=== PATIENT | male | born 1955 | race Hispanic/Latino ===

== ENCOUNTER 2019-10-08 12:13 | Inpatient (IN) | payer BC ==
[~2019-10-08] VITALS: Ht 182.9 cm; Wt 100.2 kg
[2019-10-08] MEDS ORDERED: ONDANSETRON HCL 4 MG/2 ML VIAL ONE (12:39)
[2019-10-08] MEDS ORDERED: ROCURONIUM BROMIDE 10MG/1ML 5ML VL IV ONE (12:41)
[2019-10-08 13:08] LABS: BASOPHILS % (AUTO) 0.2 % (0.0-5.0); EOSINOPHILS % (AUTO) 0.1 % (0.0-8.0); HEMATOCRIT 28.9 % (42-54); LYMPHOCYTES % (AUTO) 6.1 % (21.0-51.0); MEAN CORPUSCULAR HGB CONC 36.3 g/dL (32.0-36.0); MEAN CORPUSCULAR VOLUME 88.1 fL (79-99); MONOCYTES % (AUTO) 10.7 % (3.0-13.0); NEUTROPHILS % (AUTO) 82.4 % (40.0-77.0); PLATELET COUNT (AUTO) 149 K/uL (130-400); RED BLOOD CELL COUNT(AUTO) 3.28 MIL/uL (4.50-6.20); RED CELL DISTRIBUTION WIDTH 12.8 % (11.0-15.5); WHITE BLOOD COUNT (AUTO) 10.3 K/uL (4.8-10.8)
[2019-10-08 13:35] LABS: BILIRUBIN,TOTAL 1.4 mg/dL (0.2-1.0); POTASSIUM 3.5 mmol/L (3.5-5.1); TOTAL PROTEIN, SERUM 7.4 g/dL (6.0-8.3)
[2019-10-08 13:36] LABS: CREATININE 14.5 mg/dL (0.5-1.5)
[2019-10-08] MEDS ORDERED: SODIUM CHLORIDE 0.9% 1000ML 1,000 ML IV ONE ×2 (14:19→16:45)
[2019-10-08] MEDS ORDERED: EPINEPHRINE 0.1 MG/ML 10 ML SYG IVP ONE (14:27)
[2019-10-08 14:32] LABS: BASE EXCESS,VENOUS BLOOD GAS -13.4 (-2.0-3.0); HCO3,VENOUS BLOOD GAS 13.6 (21.0-28.0); PCO2,VENOUS BLOOD GAS 36 (35-48); PH,VENOUS BLOOD GAS 7.202 (7.350-7.450)
[2019-10-08] MEDS: SODIUM CHLORIDE 0.9% 1000ML 1,000 ML IV SCH (15:32)
[2019-10-08] MEDS ORDERED: LACTULOSE 20 GM/30 ML UDCUP PO PRN (15:45)
[2019-10-08] MEDS ORDERED: ACETAMINOPHEN 325 MG TAB PO PRN (15:45)
[2019-10-08] MEDS ORDERED: MAG HYDROX/AL HYDROX/SIMETH ES 30 ML SUSP UDCUP PO PRN (15:45)
[2019-10-08] MEDS ORDERED: GUAIFENESIN-DM 200/20 MG 10 ML PO PRN (15:45)
[2019-10-08] MEDS ORDERED: HYDRALAZINE HCL 20 MG/ML VIAL IV PRN (15:45)
[2019-10-08] MEDS ORDERED: NITROGLYCERIN 0.4 MG SL TAB SL PRN (15:45)
[2019-10-08] MEDS ORDERED: ONDANSETRON HCL 4 MG/2 ML VIAL IV PRN (15:45)
[2019-10-08 16:52] LABS: ABG BASE EXCESS -14.1 mmol/L (-2.0-3.0); ABG HCO3 12.2 mmol/L (21.0-28.0); ABG OXYGEN SATURATION 97.2 % (95.0-99.0); ABG PCO2 30 mmHg (35-48)
[2019-10-08 16:59] LABS: HEMOGLOBIN A1C 6.6 % (4.0-6.0)
[2019-10-08 17:22] LABS: ALBUMIN 3.7 g/dL (3.5-5.0); BILIRUBIN,TOTAL 0.7 mg/dL (0.2-1.0); POTASSIUM 3.5 mmol/L (3.5-5.1); TOTAL PROTEIN, SERUM 6.9 g/dL (6.0-8.3)
[2019-10-08 17:24] LABS: CREATININE 14.2 mg/dL (0.5-1.5)
[2019-10-08] MEDS ORDERED: IPRATROPIUM/ALBUTEROL SULFATE 3 ML SOLUTION IH SCH (18:00)
[2019-10-08] MEDS: HEPARIN SODIUM 5000UNIT/ML 1ML VIAL SQ SCH (21:00)
[2019-10-08] MEDS ORDERED: HEPARIN SODIUM 5000UNIT/ML 1ML VIAL ONE (21:24)
[2019-10-08 22:14] VITALS: BP 140/85
[2019-10-08] MEDS ORDERED: TEMAZEPAM 7.5 MG CAPSULE PO ONE ×2 (22:30→22:41)
[2019-10-08] MEDS ORDERED: ROSU20TA31 PO (22:53)
[2019-10-08] MEDS ORDERED: AMLO-258 PO (22:53)
[2019-10-08] MEDS ORDERED: METO25TA6 PO (22:53)
[2019-10-08] MEDS ORDERED: AEC81 PO (22:53)
[2019-10-09 04:25] VITALS: BP 121/89
[2019-10-09 06:10] LABS: BASOPHILS % (AUTO) 0.1 % (0.0-5.0); EOSINOPHILS % (AUTO) 0.4 % (0.0-8.0); HEMATOCRIT 25.5 % (42-54); MEAN CORPUSCULAR HGB CONC 35.7 g/dL (32.0-36.0); MEAN CORPUSCULAR VOLUME 89.8 fL (79-99); MONOCYTES % (AUTO) 11.4 % (3.0-13.0); NEUTROPHILS % (AUTO) 78.6 % (40.0-77.0); PLATELET COUNT (AUTO) 142 K/uL (130-400); RED BLOOD CELL COUNT(AUTO) 2.84 MIL/uL (4.50-6.20); RED CELL DISTRIBUTION WIDTH 12.8 % (11.0-15.5); WHITE BLOOD COUNT (AUTO) 9.1 K/uL (4.8-10.8)
[2019-10-09 06:35] LABS: ALBUMIN 3.4 g/dL (3.5-5.0); BILIRUBIN,TOTAL 0.6 mg/dL (0.2-1.0); CRP QUANTITATIVE 12.2 mg/L (0.00-9.0); MAGNESIUM 2.6 mg/dL (1.80-2.40); POTASSIUM 3.3 mmol/L (3.5-5.1); THYROID STIMULATING HORMONE 38.4 uIU/mL (0.36-3.74); TOTAL PROTEIN, SERUM 6.4 g/dL (6.0-8.3)
[2019-10-09 06:38] LABS: B-TYPE NATRIURETIC PEPTIDE 87 pg/mL (0-100); CREATININE 14.8 mg/dL (0.5-1.5)
[2019-10-09 07:30] VITALS: BP 122/71
[2019-10-09] MEDS: HEPARIN SODIUM 5000UNIT/ML 1ML VIAL SQ SCH ×2 (10:24→21:53)
[2019-10-09] MEDS: POTASSIUM CHLORIDE 20 MEQ ERTAB PO SCH (10:24)
[2019-10-09] MEDS: SODIUM CHLORIDE 0.9% 1000ML 1,000 ML IV SCH ×2 (10:24→18:37)
[2019-10-09] MEDS: LEVOTHYROXINE 100 MCG VIAL IV SCH (10:27)
[2019-10-09 11:00] VITALS: BP 126/77
--- NOTE | 2019-10-09 11:30 | NUR ---
PATIENT REFUSED ENEMA. INFORMED DR. MERRILL.
[2019-10-09] MEDS: SEVELAMER HCL 800 MG TABLET PO SCH ×2 (11:40→16:24)
--- NOTE | 2019-10-09 11:40 | NUR ---
ABOUT TO PLACE PARADA CATHETER WHEN I NOTICED THAT PATIENT IS HAVING BLOODY DISCHARGE FROM [facility]. I INFORMED DR. MERRILL AND PLACED PARADA CATHETER WITHOUT COMPLICATIONS.
[2019-10-09 12:21] LABS: POTASSIUM 3.2 mmol/L (3.5-5.1)
[2019-10-09 13:00] LABS: CREATININE 14.5 mg/dL (0.5-1.5)
--- NOTE | 2019-10-09 13:47 | NUR ---
CM NOTE/IA MEET WITH PATIENT IN ROOM. PER PATIENT, IS SEMI INDEPENDENT WITH ADLS, LIVES WITH SPOUSE, NO HOME HEALTH OR PROVIDER SERVICES, HAS ROLLATOR WALKER IN USE AT TIMES, AND FEELS SAFE TO RETURN HOME ONCE DISCHARGED. Addendum: 10/09/19 at 1348 by JARED KNOX RN CM Amended: Links added.
[2019-10-09 16:00] VITALS: BP 134/75
[2019-10-09 19:40] LABS: POTASSIUM 3.1 mmol/L (3.5-5.1)
[2019-10-09 19:46] LABS: CREATININE 14.4 mg/dL (0.5-1.5)
[2019-10-09 20:00] VITALS: BP 134/75
[2019-10-09] MEDS: SODIUM BICARBONATE 650 MG TAB PO SCH (20:38)
[2019-10-09] MEDS ORDERED: TEMAZEPAM 7.5 MG CAPSULE PO ONE ×2 (22:45→23:31)
[2019-10-10] VITALS (7 sets, daily range): BP systolic 131–139; BP diastolic 71–83
[2019-10-10 00:08] LABS: APPEARANCE,URINE Turbid (CLEAR); BILIRUBIN,URINE Negative (NEGATIVE); COLOR,URINE Dark Yellow (YELLOW); GLUCOSE, URINE (UA) Negative (NEGATIVE); KETONES,URINE Negative (NEGATIVE); LEUKOCYTE ESTERASE ,URINE Small (NEGATIVE); NITRATE,URINE Negative (NEGATIVE); OCCULT BLOOD,URINE Moderate (NEGATIVE); PROTEIN,URINE 300 mg/dL (NEGATIVE)
[2019-10-10 00:19] LABS: CREATININE,URINE RANDOM 162 mg/dL (30-135); SODIUM,URINE RANDOM 31 mmol/l (40-220)
[2019-10-10 00:22] LABS: BACTERIA,URINE Few /HPF (None Seen); WBC,URINE 0-1 /HPF (0-1)
[2019-10-10 00:23] LABS: AMORPHOUS SEDIMENT,UR Moderate /LPF (None Seen)
[2019-10-10] MEDS: SODIUM CHLORIDE 0.9% 1000ML 1,000 ML IV SCH ×3 (03:00→16:56)
[2019-10-10 04:28] LABS: BASOPHILS % (AUTO) 0.1 % (0.0-5.0); EOSINOPHILS % (AUTO) 0.1 % (0.0-8.0); LYMPHOCYTES % (AUTO) 6.1 % (21.0-51.0); MEAN CORPUSCULAR HEMOGLOBIN 32.1 pg (27.0-33.0); MEAN CORPUSCULAR HGB CONC 36.2 g/dL (32.0-36.0); MEAN CORPUSCULAR VOLUME 88.7 fL (79-99); NEUTROPHILS % (AUTO) 81.1 % (40.0-77.0); PLATELET COUNT (AUTO) 126 K/uL (130-400); RED BLOOD CELL COUNT(AUTO) 2.93 MIL/uL (4.50-6.20); RED CELL DISTRIBUTION WIDTH 13.1 % (11.0-15.5); WHITE BLOOD COUNT (AUTO) 10.4 K/uL (4.8-10.8)
[2019-10-10 05:19] LABS: % IRON SATURATION 66.8 % (30-44)
[2019-10-10 05:23] LABS: ALBUMIN 3.2 g/dL (3.5-5.0); BILIRUBIN,TOTAL 0.6 mg/dL (0.2-1.0); PHOSPHORUS 7.7 mg/dL (2.5-4.9); POTASSIUM 3.1 mmol/L (3.5-5.1); TOTAL PROTEIN, SERUM 6.1 g/dL (6.0-8.3)
[2019-10-10 05:28] LABS: CREATININE 14.6 mg/dL (0.5-1.5)
[2019-10-10] MEDS: LEVOTHYROXINE 100 MCG VIAL IV SCH (06:30)
--- NOTE | 2019-10-10 08:00 | NUR ---
DR. SANDOVAL IS IN TO SEE PATIENT. PER MD, WILL CONTINUE IVF AT THIS TIME. WILL REEVALUATE TOMORROW FOR THE NEED TO START HEMODIALYSIS.
[2019-10-10] MEDS ORDERED: EPOETIN ALFA 10,000 UNIT/ML VIAL SQ SCH (08:30)
[2019-10-10] MEDS ORDERED: POTASSIUM CHLORIDE 20 MEQ ERTAB PO SCH (08:30)
[2019-10-10] MEDS: SEVELAMER HCL 800 MG TABLET PO SCH ×3 (09:07→16:55)
[2019-10-10] MEDS: SODIUM BICARBONATE 650 MG TAB PO SCH ×2 (09:07→20:19)
[2019-10-10] MEDS: HEPARIN SODIUM 5000UNIT/ML 1ML VIAL SQ SCH ×2 (09:08→20:21)
[2019-10-10] MEDS: POTASSIUM CHLORIDE 20 MEQ ERTAB PO SCH (09:08)
[2019-10-10] MEDS ORDERED: LACTULOSE 20 GM/30 ML UDCUP PO SCH (11:00)
--- NOTE | 2019-10-10 15:00 | NUR ---
DR. BANKS IS MAKING HIS ROUNDS. ORDERED TO CHECK CORTISOL LEVEL IN AM.
[2019-10-11 03:18] VITALS: BP 136/75
[2019-10-11 04:25] LABS: BASOPHILS % (AUTO) 0.2 % (0.0-5.0); EOSINOPHILS % (AUTO) 0.3 % (0.0-8.0); HEMATOCRIT 24.7 % (42-54); LYMPHOCYTES % (AUTO) 5.2 % (21.0-51.0); MEAN CORPUSCULAR HEMOGLOBIN 31.5 pg (27.0-33.0); MEAN CORPUSCULAR HGB CONC 35.6 g/dL (32.0-36.0); MEAN CORPUSCULAR VOLUME 88.5 fL (79-99); MONOCYTES % (AUTO) 10.4 % (3.0-13.0); NEUTROPHILS % (AUTO) 83.2 % (40.0-77.0); PLATELET COUNT (AUTO) 111 K/uL (130-400); RED BLOOD CELL COUNT(AUTO) 2.79 MIL/uL (4.50-6.20); RED CELL DISTRIBUTION WIDTH 13.2 % (11.0-15.5); WHITE BLOOD COUNT (AUTO) 10.7 K/uL (4.8-10.8)
[2019-10-11 05:25] LABS: ALBUMIN 2.9 g/dL (3.5-5.0); BILIRUBIN,TOTAL 0.5 mg/dL (0.2-1.0); POTASSIUM 3.1 mmol/L (3.5-5.1); TOTAL PROTEIN, SERUM 5.8 g/dL (6.0-8.3)
[2019-10-11] MEDS: LEVOTHYROXINE 50 MCG TABLET PO SCH (06:05)
[2019-10-11] MEDS: SODIUM CHLORIDE 0.9% 1000ML 1,000 ML IV SCH ×3 (06:05→23:49)
[2019-10-11 08:00] VITALS: BP 128/78
[2019-10-11] MEDS: SODIUM BICARBONATE 650 MG TAB PO SCH ×2 (08:26→19:55)
[2019-10-11] MEDS: SEVELAMER HCL 800 MG TABLET PO SCH ×3 (08:26→16:52)
[2019-10-11] MEDS: HEPARIN SODIUM 5000UNIT/ML 1ML VIAL SQ SCH ×2 (08:28→20:15)
[2019-10-11] MEDS: ACETAMINOPHEN 325 MG TAB PO PRN (08:33)
[2019-10-11 12:00] VITALS: BP 134/77
[2019-10-11 16:00] VITALS: BP 138/77
[2019-10-11 19:07] VITALS: BP_SYST 147; BP_DIAS 45; BP_DIAS 67
[2019-10-11] MEDS: TEMAZEPAM 7.5 MG CAPSULE PO PRN (19:55)
[2019-10-11 23:44] VITALS: BP 127/89
[2019-10-12] MEDS: SODIUM CHLORIDE 0.9% 1000ML 1,000 ML IV SCH ×3 (02:37→20:05)
[2019-10-12 05:23] VITALS: BP 140/73
[2019-10-12] MEDS: LEVOTHYROXINE 50 MCG TABLET PO SCH (05:23)
[2019-10-12 05:40] LABS: HEMATOCRIT 25.8 % (42-54); MEAN CORPUSCULAR HEMOGLOBIN 32.2 pg (27.0-33.0); MEAN CORPUSCULAR VOLUME 89.3 fL (79-99); PLATELET COUNT (AUTO) 116 K/uL (130-400); RED BLOOD CELL COUNT(AUTO) 2.89 MIL/uL (4.50-6.20); RED CELL DISTRIBUTION WIDTH 13.3 % (11.0-15.5); WHITE BLOOD COUNT (AUTO) 9.7 K/uL (4.8-10.8)
[2019-10-12 05:47] LABS: BAND NEUTROPHILS % (MANUAL) 9 % (0-2); LYMPHOCYTES % (MANUAL) 11 % (22-44); MAN.DIFF COMMENT-IMPRESSION MANUAL DIFFERENTIAL; MONOCYTES % (MANUAL) 16 % (2-9); PLATELET MORPHOLOGY COMMENT ADEQUATE; SEGMENTED NEUTROPHILS % 64 % (40-70)
[2019-10-12 06:09] LABS: PHOSPHORUS 7.7 mg/dL (2.5-4.9); POTASSIUM 3.4 mmol/L (3.5-5.1)
[2019-10-12 06:12] LABS: CREATININE 13.9 mg/dL (0.5-1.5)
[2019-10-12] MEDS: DiphenhydrAMINE HCL 50 MG/ML VIAL IV PRN (06:18)
[2019-10-12] MEDS: ACETAMINOPHEN 325 MG TAB PO PRN (06:38)
[2019-10-12 07:00] VITALS: BP 151/81
[2019-10-12] MEDS: SODIUM BICARBONATE 650 MG TAB PO SCH ×2 (09:14→20:00)
[2019-10-12] MEDS: SEVELAMER HCL 800 MG TABLET PO SCH ×3 (09:14→16:31)
[2019-10-12] MEDS: HEPARIN SODIUM 5000UNIT/ML 1ML VIAL SQ SCH ×2 (09:31→20:03)
[2019-10-12 11:00] VITALS: BP 125/74
[2019-10-12 16:00] VITALS: BP 152/83
[2019-10-12 19:24] VITALS: BP 134/86
--- NOTE | 2019-10-12 21:00 | NUR ---
TELEPHONE CONSENT OBTAINED FOR PERMACATH PLACEMENT. CONSENT TO PROCEDURE. ART RN WITNESSED. PT IS AAO3. WANTED TO ALLOW TO CONSENT TO PROCEDURE SINCE HE IS WEAK AND HAS DIFFICULTY WITH WRITING PROPERLY DUE TO WEAKNESS.
[2019-10-13] VITALS (14 sets, daily range): BP systolic 132–164; BP diastolic 66–92
[2019-10-13] MEDS: SODIUM CHLORIDE 0.9% 1000ML 1,000 ML IV SCH ×2 (02:37→06:44)
[2019-10-13] MEDS: LEVOTHYROXINE 50 MCG TABLET PO SCH (05:36)
[2019-10-13 06:10] LABS: BASOPHILS % (AUTO) 0.2 % (0.0-5.0); EOSINOPHILS % (AUTO) 0.2 % (0.0-8.0); HEMATOCRIT 25.2 % (42-54); LYMPHOCYTES % (AUTO) 3.9 % (21.0-51.0); MEAN CORPUSCULAR HEMOGLOBIN 32.3 pg (27.0-33.0); MEAN CORPUSCULAR HGB CONC 35.7 g/dL (32.0-36.0); MEAN CORPUSCULAR VOLUME 90.3 fL (79-99); MONOCYTES % (AUTO) 13.6 % (3.0-13.0); NUCLEATED RED BLOOD CELLS 0.2 % (0.0-0.19); PLATELET COUNT (AUTO) 103 K/uL (130-400); RED BLOOD CELL COUNT(AUTO) 2.79 MIL/uL (4.50-6.20); RED CELL DISTRIBUTION WIDTH 13.6 % (11.0-15.5); WHITE BLOOD COUNT (AUTO) 8.5 K/uL (4.8-10.8)
[2019-10-13 06:22] LABS: INR 1.12 (0.85-1.15); PARTIAL THROMBOPLASTIN TIME 65.4 SEC (26.3-35.5)
[2019-10-13 06:23] LABS: ALBUMIN 2.8 g/dL (3.5-5.0); BILIRUBIN,TOTAL 0.4 mg/dL (0.2-1.0); PHOSPHORUS 7.5 mg/dL (2.5-4.9); POTASSIUM 3.5 mmol/L (3.5-5.1); TOTAL PROTEIN, SERUM 5.6 g/dL (6.0-8.3)
[2019-10-13 06:49] LABS: CREATININE 13.7 mg/dL (0.5-1.5)
[2019-10-13] MEDS: SEVELAMER HCL 800 MG TABLET PO SCH ×3 (07:53→16:26)
[2019-10-13] MEDS ORDERED: LIDOCAINE HCL 1% MDV 50ML VIAL ONE (08:48)
[2019-10-13] MEDS: HEPARIN SODIUM 5000UNIT/ML 1ML VIAL SQ SCH ×2 (09:00→21:26)
[2019-10-13] MEDS ORDERED: MIDAZOLAM HCL 1 MG/ML 2ML VIAL ONE (09:16)
[2019-10-13] MEDS ORDERED: FENTANYL CITRATE PF 50 MCG/1 ML 2ML VIAL ONE (09:16)
[2019-10-13 11:59] LABS: HEMATOCRIT 24.2 % (42-54)
[2019-10-13] MEDS ORDERED: HEPARIN SODIUM 5000UNIT/ML 1ML VIAL IJ PRN ×2 (12:00)
[2019-10-13] MEDS ORDERED: NITROGLYCERIN 0.4 MG SL TAB SL PRN (12:00)
[2019-10-13] MEDS ORDERED: SODIUM CHLORIDE 0.9% 1000ML 1,000 ML IV PRN (12:00)
[2019-10-13] MEDS ORDERED: 0.9% SODIUM CHLORIDE 1000 ML IV BAG IV PRN (12:00)
[2019-10-13] MEDS ORDERED: ACETAMINOPHEN 325 MG TAB PO PRN (12:00)
[2019-10-13 12:14] LABS: HEMOGLOBIN A1C 6.1 % (4.0-6.0)
[2019-10-13 12:17] LABS: ALBUMIN 2.7 g/dL (3.5-5.0)
[2019-10-13 12:29] LABS: CREATININE 12.4 mg/dL (0.5-1.5)
[2019-10-13 12:34] LABS: % IRON SATURATION 96.4 % (30-44)
--- NOTE | 2019-10-13 21:00 | NUR ---
SPOKE TO PT'S . UPDATED HER ON PT'S STATUS.
[2019-10-13] MEDS: DiphenhydrAMINE HCL 50 MG/ML VIAL IV PRN (21:37)
--- NOTE | 2019-10-13 23:00 | NUR ---
PT HAD PERMACATH PLACED TODAY, THEN WAS DIALYZED. NOTED TO HAVE SATURATED DRESSING TO RIGHT UPPER CHEST. REDRESS WITH GAUZE. DIALYSIS NURSE INFORMED. PT STATES HE FEELS VERY EXHAUSTED. WAS INFORMED THAT AFTER FIRST DIALYSIS PT EXPERIENCE FATIGUE. REQUESTED MEDICATIONS TO HELP HIM RELAX AND SLEEP. BENADRYL GIVEN PRN.
[2019-10-14] VITALS: BP 152/87
[2019-10-14 04:00] VITALS: BP 152/85
--- NOTE | 2019-10-14 05:20 | NUR ---
CHANGED PERMACATH DRESSING DUE TO IT HAVING SOME BLEEDING. APPLIED EXTRA TAPE FOR PRESSURE.
--- NOTE | 2019-10-14 05:23 | NUR ---
DID NOT DO DAILY WEIGHT. PT HAS INCREASED WEAKNESS S/P FIRST DIALYSIS AND PERMACATH PLACEMENT. HE STATES HE DOES NOT FEEL WELL. HIS PERMACATH AREA IS BLEEDING AND PLTS ARE LOW. PCP AWARE TO RELAY MESSAGE TO WEIGHT DURING THE DAY WHEN GETS UP WITH PT.
[2019-10-14] MEDS: DIPHENHYDRAMINE HCL 25 MG CAPSULE PO PRN ×2 (05:53→17:14)
[2019-10-14] MEDS: LEVOTHYROXINE 50 MCG TABLET PO SCH (05:53)
[2019-10-14 05:58] LABS: BASOPHILS % (AUTO) 0.1 % (0.0-5.0); EOSINOPHILS % (AUTO) 0.2 % (0.0-8.0); HEMATOCRIT 22.5 % (42-54); LYMPHOCYTES % (AUTO) 4.6 % (21.0-51.0); MEAN CORPUSCULAR HEMOGLOBIN 31.4 pg (27.0-33.0); MEAN CORPUSCULAR HGB CONC 35.6 g/dL (32.0-36.0); MEAN CORPUSCULAR VOLUME 88.2 fL (79-99); MONOCYTES % (AUTO) 13.9 % (3.0-13.0); PLATELET COUNT (AUTO) 83 K/uL (130-400); RED BLOOD CELL COUNT(AUTO) 2.55 MIL/uL (4.50-6.20); RED CELL DISTRIBUTION WIDTH 13.7 % (11.0-15.5); WHITE BLOOD COUNT (AUTO) 8.2 K/uL (4.8-10.8)
[2019-10-14] MEDS: HEPARIN SODIUM 5000UNIT/ML 1ML VIAL SQ SCH ×2 (05:59→20:15)
[2019-10-14 06:13] LABS: ALBUMIN 2.6 g/dL (3.5-5.0); BILIRUBIN,TOTAL 0.4 mg/dL (0.2-1.0); TOTAL PROTEIN, SERUM 5.4 g/dL (6.0-8.3)
[2019-10-14 06:23] LABS: CREATININE 10.4 mg/dL (0.5-1.5)
[2019-10-14 07:36] VITALS: BP 148/80
[2019-10-14] MEDS: SEVELAMER HCL 800 MG TABLET PO SCH ×3 (08:21→16:52)
[2019-10-14 10:10] LABS: HEPATITIS Bs ANTIGEN SCREEN P Negative (Negative)
[2019-10-14 11:27] VITALS: BP 143/91
[2019-10-14 15:36] VITALS: BP 142/84
[2019-10-14 21:02] VITALS: BP 153/82
--- NOTE | 2019-10-14 22:00 | NUR ---
permacath dressing changed patients gown and permacath dressing soaked with blood. dressing change done. there was not any active oozing present during dressing change.
[2019-10-14] MEDS: TEMAZEPAM 7.5 MG CAPSULE PO PRN (23:03)
[2019-10-15 00:06] VITALS: BP 148/81
[2019-10-15 04:00] VITALS: BP 94/61
[2019-10-15 05:21] LABS: ALBUMIN 2.5 g/dL (3.5-5.0); BILIRUBIN,TOTAL 0.4 mg/dL (0.2-1.0); INR 1.08 (0.85-1.15); PARTIAL THROMBOPLASTIN TIME 37.1 SEC (26.3-35.5); PHOSPHORUS 4.4 mg/dL (2.5-4.9); POTASSIUM 3.6 mmol/L (3.5-5.1); PROTHROMBIN TIME 11.6 SEC (9.6-11.6); TOTAL PROTEIN, SERUM 5.2 g/dL (6.0-8.3)
[2019-10-15 05:29] LABS: CREATININE 8.1 mg/dL (0.5-1.5)
[2019-10-15 05:53] LABS: MEAN CORPUSCULAR HEMOGLOBIN 31.8 pg (27.0-33.0); MEAN CORPUSCULAR HGB CONC 35.1 g/dL (32.0-36.0); MEAN CORPUSCULAR VOLUME 90.6 fL (79-99); NUCLEATED RED BLOOD CELLS 0.3 % (0.0-0.19); PLATELET COUNT (AUTO) 66 K/uL (130-400); RED BLOOD CELL COUNT(AUTO) 1.92 MIL/uL (4.50-6.20); RED CELL DISTRIBUTION WIDTH 14.3 % (11.0-15.5); WHITE BLOOD COUNT (AUTO) 9.5 K/uL (4.8-10.8)
[2019-10-15 05:56] LABS: HEMATOCRIT 17.4 % (42-54)
--- NOTE | 2019-10-15 06:08 | NUR ---
critical h/h kaye henderson NP notified of h/h 6.06/04.5 orders received for type/screen and xfuse 1 unit of prbc to be given in hd today if he is not dialyzed today, then xfuse 1 unit of prbc anyway
[2019-10-15 06:19] LABS: BAND NEUTROPHILS % (MANUAL) 20 % (0-2); LYMPHOCYTES % (MANUAL) 11 % (22-44); MAN.DIFF COMMENT-IMPRESSION MANUAL DIFFERENTIAL; MONOCYTES % (MANUAL) 5 % (2-9); SEGMENTED NEUTROPHILS % 64 % (40-70)
[2019-10-15 06:20] LABS: PLATELET MORPHOLOGY COMMENT DECREASED
[2019-10-15] MEDS: LEVOTHYROXINE 50 MCG TABLET PO SCH (06:30)
--- NOTE | 2019-10-15 07:30 | NUR ---
ASSESSMENT ENCOUNTERED PT A&OX3, CALM COOPERATIVE AND DOES NOT APPEAR TO BE IN ANY DISTRESS NOR ANY NEURO DEFICITS PRESENT. PT DOES C/O RT UPPER ARM DISCOMFORT, TENDER TO TOUCH AND MOVEMENT. PERMACATH TO RSC, WITH NO ACTIVE BLEEDING BUT DID BLEED OVERNIGHT, MANUAL PRESSURE HELD BY SUPERVISOR DRYING AND WINDING RN, DRESSING WILL BE REMOVED AND RE-APPLIED DURING DIALYSIS TODAY. PT IS ABLE TO TOLERATE FOOD, FLUIDS AND MEDICATION WITH NO THROAT CLEARING OR COUGH. CALL LIGHT WITHIN REACH.
[2019-10-15] MEDS: SEVELAMER HCL 800 MG TABLET PO SCH ×3 (07:36→17:00)
[2019-10-15 07:57] VITALS: BP 116/75
[2019-10-15] MEDS: HEPARIN SODIUM 5000UNIT/ML 1ML VIAL SQ SCH ×2 (09:00→20:30)
--- NOTE | 2019-10-15 14:03 | NUR ---
RDSCREEN-LOS X 7 Pt admitted with KRISS, severe dehydration. History of CAD post CABGx1, HTN, DM. Pt pending Dialysis and transfusion. Current diet order of Renal Non-Dialysis. Pt reports fair PO intake at 50%, no report of GI distress. Recommend modify to Renal Dialysis, 75gm CC diet order Recommend Nepro QD RD tp continue to monitor. Please notify as additional nutrition concerns arise. Thank you. Addendum: 10/15/19 at [address] Amended: Links added.
[2019-10-15 16:00] VITALS: BP 151/89
[2019-10-15 18:56] VITALS: BP 140/89
[2019-10-15] MEDS: TEMAZEPAM 7.5 MG CAPSULE PO PRN (21:12)
[2019-10-15 23:45] VITALS: BP 160/89
[2019-10-16] VITALS (7 sets, daily range): BP systolic 73–148; BP diastolic 47–74
[2019-10-16] MEDS: LEVOTHYROXINE 50 MCG TABLET PO SCH (06:30)
[2019-10-16 06:35] LABS: CREATININE 6.3 mg/dL (0.5-1.5); MAGNESIUM 1.8 mg/dL (1.80-2.40); PHOSPHORUS 4.9 mg/dL (2.5-4.9); POTASSIUM 3.4 mmol/L (3.5-5.1)
[2019-10-16 06:40] LABS: MEAN CORPUSCULAR VOLUME 91.8 fL (79-99); NUCLEATED RED BLOOD CELLS 1.1 % (0.0-0.19); PLATELET COUNT (AUTO) 65 K/uL (130-400); RED BLOOD CELL COUNT(AUTO) 1.94 MIL/uL (4.50-6.20); WHITE BLOOD COUNT (AUTO) 11.2 K/uL (4.8-10.8)
[2019-10-16 06:44] LABS: HEMATOCRIT 17.8 % (42-54)
[2019-10-16 07:46] LABS: LYMPHOCYTES % (MANUAL) 7 % (22-44); MAN.DIFF COMMENT-IMPRESSION MANUAL DIFFERENTIAL; MONOCYTES % (MANUAL) 8 % (2-9); SEGMENTED NEUTROPHILS % 85 % (40-70)
[2019-10-16 07:48] LABS: PLATELET MORPHOLOGY COMMENT DECREASED
[2019-10-16] MEDS: SEVELAMER HCL 800 MG TABLET PO SCH ×3 (08:00→16:55)
[2019-10-16] MEDS: HEPARIN SODIUM 5000UNIT/ML 1ML VIAL SQ SCH ×2 (09:00→19:49)
--- NOTE | 2019-10-16 14:24 | NUR ---
CM Note: Giulia Dawn pending approval and chair time CM spoke to pt discussed MD recommendations for outpatient dialysis. Pt now agreeable, requested to have spouse be called for consent. Called pt spouse spoke to Vale, discussed MD recommendations and pt request for spouse to give consent. Spouse agreeable, requested for MWF morning chair time if possible, informed spouse CM unable to guarantee schedule but will inform Giulia of spouse request, telephone consent obtained for Giulia Dawn. Faxed order, labs, and clinicals to Giulia Sorensen, confirmation received. Pt pending approval and chair time. Primary nurse aware. CM to cont to follow up.
[2019-10-17] VITALS (93 sets, daily range): BP systolic 64–165; BP diastolic 36–101
[2019-10-17] MEDS: LEVOTHYROXINE 50 MCG TABLET PO SCH (06:34)
[2019-10-17] MEDS ORDERED: DEXTROSE 50%-WATER 50 ML DISP.SYRIN IV ONE (07:15)
[2019-10-17 07:29] LABS: ABG BASE EXCESS -14.7 mmol/L (-2.0-3.0); ABG HCO3 11.3 mmol/L (21.0-28.0); ABG PCO2 27 mmHg (35-48)
--- NOTE | 2019-10-17 07:40 | NUR ---
RESPIRATORY DISTRESS 0715 PATIENT WAS FOUND IN RESPIRATORY DISTRESS, SHALLOW BREATHING, PALE. O2 SAT OF 68% PLACED ON A NON REBREATHER. RAPID RESPONSE CALLED.
[2019-10-17 07:49] LABS: BASOPHILS % (AUTO) 0.1 % (0.0-5.0); LYMPHOCYTES % (AUTO) 1.5 % (21.0-51.0); MEAN CORPUSCULAR HEMOGLOBIN 30.8 pg (27.0-33.0); MEAN CORPUSCULAR HGB CONC 33.3 g/dL (32.0-36.0); MEAN CORPUSCULAR VOLUME 92.3 fL (79-99); MONOCYTES % (AUTO) 12.7 % (3.0-13.0); NEUTROPHILS % (AUTO) 85.1 % (40.0-77.0); NUCLEATED RED BLOOD CELLS 1.7 % (0.0-0.19); PLATELET COUNT (AUTO) 55 K/uL (130-400); RED CELL DISTRIBUTION WIDTH 14.8 % (11.0-15.5); WHITE BLOOD COUNT (AUTO) 16.1 K/uL (4.8-10.8)
[2019-10-17] MEDS ORDERED: VANCOMYCIN PROTOCOL PER PHARMACY IV PRN (08:00)
[2019-10-17] MEDS ORDERED: VANCOMYCIN 1GM+NS 250ML 250 ML IV SCH (08:00)
[2019-10-17 08:06] LABS: CREATININE 7.1 mg/dL (0.5-1.5); POTASSIUM 3.7 mmol/L (3.5-5.1)
[2019-10-17 08:16] LABS: BILIRUBIN,TOTAL 0.9 mg/dL (0.2-1.0); MAGNESIUM 1.9 mg/dL (1.80-2.40); TOTAL PROTEIN, SERUM 4.2 g/dL (6.0-8.3)
[2019-10-17] MEDS ORDERED: DESMOPRESSIN ACETATE 4 MCG/ML 0 MCG in SODIUM CHLORIDE 0.9% 50 ML IV SCH (08:30)
[2019-10-17 08:42] LABS: TROPONIN I 1.37 ng/mL (0.00-0.06)
[2019-10-17] MEDS: HEPARIN SODIUM 5000UNIT/ML 1ML VIAL SQ SCH (09:00)
[2019-10-17] MEDS: MEROPENEM 500 MG VIAL IV SCH ×2 (09:40→21:03)
[2019-10-17] MEDS: SEVELAMER HCL 800 MG TABLET PO SCH ×4 (09:40→17:00)
[2019-10-17] MEDS ORDERED: PANTOPRAZOLE 40 MG/VIAL IVP SCH (12:00)
[2019-10-17] MEDS ORDERED: OCTREOTIDE ACETATE 100 MCG/ML AMP IV SCH (12:00)
[2019-10-17] MEDS ORDERED: OCTREOTIDE ACETATE 1,250 MCG in SODIUM CHLORIDE 0.9% 250 ML IV SCH (12:00)
[2019-10-17] MEDS ORDERED: DEXTROSE 10%-WATER 1,000 ML IV SCH (12:15)
[2019-10-17] MEDS: DESMOPRESSIN ACETATE IJ SCH ×2 (12:42→17:51)
[2019-10-17] MEDS: SODIUM CHLORIDE 0.9% IJ SCH ×2 (12:42→17:51)
[2019-10-17] MEDS ORDERED: COMPOUND IV REFRIGERATED 1 EACH IVSOLN MISC PRN (12:45)
[2019-10-17] MEDS ORDERED: SODIUM CHLORIDE 0.9% 500ML 500 ML IV ONE ×2 (13:51→14:21)
[2019-10-17] MEDS ORDERED: PROPOFOL 1000 MG/100 ML 100 ML IV ONE ×2 (13:52→19:05)
[2019-10-17] MEDS ORDERED: NOREPINEPHRINE 4MG/NS 250ML 250 ML IV ONE (13:55)
[2019-10-17] MEDS ORDERED: FENTANYL CITRATE PF 50 MCG/1 ML 2ML VIAL ONE (14:07)
[2019-10-17] MEDS ORDERED: VASOPRESSIN 20 UNITS/ML 1ML VIAL ONE (14:36)
[2019-10-17] MEDS ORDERED: SODIUM CHLORIDE 0.9% 100 ML IV ONE ×2 (14:37)
--- NOTE | 2019-10-17 16:00 | NUR ---
GI Spoke with Dr. Mercer and informed of pts current condition s/p intubation, blood products being given and need for GI procedures. He states that he has reviewed pts case and once pt has received blood transfusions he will evaluate for GI procedures. He states Platelets are low as well; cause needs to be evaluated.
[2019-10-17] MEDS: NOREPINEPHRINE 4MG/NS 250ML 250 ML IV SCH ×2 (17:01→18:14)
[2019-10-17 17:54] LABS: HEMATOCRIT 21.5 % (42-54); MEAN CORPUSCULAR HEMOGLOBIN 30.2 pg (27.0-33.0); MEAN CORPUSCULAR VOLUME 88.8 fL (79-99); NUCLEATED RED BLOOD CELLS 4.7 % (0.0-0.19); RED BLOOD CELL COUNT(AUTO) 2.42 MIL/uL (4.50-6.20); RED CELL DISTRIBUTION WIDTH 14.1 % (11.0-15.5); WHITE BLOOD COUNT (AUTO) 7.1 K/uL (4.8-10.8)
[2019-10-17 18:15] LABS: INR 1.26 (0.85-1.15); PARTIAL THROMBOPLASTIN TIME 34.8 SEC (26.3-35.5); PROTHROMBIN TIME 13.5 SEC (9.6-11.6)
[2019-10-17] MEDS: VASOPRESSIN 20 UNITS in SODIUM CHLORIDE 0.9% 100 ML IV SCH (18:19)
[2019-10-17] MEDS ORDERED: ERYTHROMYCIN LACTOBIONATE 250 MG in SODIUM CHLORIDE 0.9% 100 ML IV SCH (18:45)
[2019-10-17] MEDS ORDERED: NOREPINEPHRINE 4MG/NS 250ML 4 MG/250 ML IV.SOLN IV STA (19:57)
[2019-10-17] MEDS ORDERED: NOREPINEPHRINE BITARTRATE 8 MG/NS 250ML IV SCH ×2 (20:15)
[2019-10-17 21:12] LABS: HEMATOCRIT 28.6 % (42-54)
[2019-10-17] MEDS: PANTOPRAZOLE SODIUM 80 MG in SODIUM CHLORIDE 0.9% 100 ML IV SCH (22:18)
[2019-10-18] VITALS (95 sets, daily range): BP systolic 82–144; BP diastolic 50–85
[2019-10-18] MEDS: VASOPRESSIN 20 UNITS in SODIUM CHLORIDE 0.9% 100 ML IV SCH ×3 (00:45→18:52)
[2019-10-18 03:53] LABS: BASOPHILS % (AUTO) 0.5 % (0.0-5.0); EOSINOPHILS % (AUTO) 2.5 % (0.0-8.0); HEMATOCRIT 25.4 % (42-54); MEAN CORPUSCULAR HEMOGLOBIN 30.4 pg (27.0-33.0); MEAN CORPUSCULAR HGB CONC 34.6 g/dL (32.0-36.0); MEAN CORPUSCULAR VOLUME 87.9 fL (79-99); MONOCYTES % (AUTO) 12.2 % (3.0-13.0); NEUTROPHILS % (AUTO) 82.4 % (40.0-77.0); NUCLEATED RED BLOOD CELLS 3.7 % (0.0-0.19); PLATELET COUNT (AUTO) 64 K/uL (130-400); RED BLOOD CELL COUNT(AUTO) 2.89 MIL/uL (4.50-6.20); RED CELL DISTRIBUTION WIDTH 14.6 % (11.0-15.5); WHITE BLOOD COUNT (AUTO) 7.6 K/uL (4.8-10.8)
[2019-10-18] MEDS ORDERED: PROPOFOL 1000 MG/100 ML 100 ML IV ONE (03:59)
[2019-10-18] MEDS: SODIUM CHLORIDE 0.9% IJ SCH ×3 (04:08→09:43)
[2019-10-18] MEDS: DESMOPRESSIN ACETATE IJ SCH ×3 (04:08→09:43)
--- NOTE | 2019-10-18 04:15 | NUR ---
Re-Intubation Re-intubation done by ER. physician Dr. Tenorio. Possible ET tube cuff leak. S/P chest X-ray done, bilateral breath sounds, and followed up with DR. Moeller regarding successful intubation.
[2019-10-18 04:31] LABS: CREATININE 6.3 mg/dL (0.5-1.5); MAGNESIUM 1.9 mg/dL (1.80-2.40); PHOSPHORUS 6.5 mg/dL (2.5-4.9); POTASSIUM 3.6 mmol/L (3.5-5.1)
[2019-10-18] MEDS ORDERED: ERYTHROMYCIN LACTOBIONATE 250 MG in SODIUM CHLORIDE 0.9% 100 ML IV SCH (06:00)
[2019-10-18] MEDS: LEVOTHYROXINE 50 MCG TABLET PO SCH (06:27)
[2019-10-18] MEDS ORDERED: PHARMACY COMMUNICATION MISC SCH ×2 (06:30→15:45)
[2019-10-18] MEDS: SEVELAMER HCL 800 MG TABLET PO SCH ×3 (07:03→16:07)
[2019-10-18] MEDS ORDERED: PROPOFOL 1000 MG/100 ML IV PRN (07:15)
[2019-10-18] MEDS: MEROPENEM 500 MG VIAL IV SCH ×2 (07:55→20:08)
[2019-10-18] MEDS: PANTOPRAZOLE SODIUM 80 MG in SODIUM CHLORIDE 0.9% 100 ML IV SCH (07:56)
[2019-10-18] MEDS: LACTULOSE 20 GM/30 ML UDCUP PO SCH ×3 (10:24→14:24)
[2019-10-18] MEDS: PROPOFOL 1000 MG/100 ML 100 ML IV PRN (12:53)
[2019-10-18] MEDS ORDERED: HYDROCORTISONE SOD SUCCINATE 100 MG/2 ML VIAL IV SCH ×2 (14:15→21:00)
[2019-10-18] MEDS ORDERED: PEG 3350/NA SULF,BICARB,CL/KCL 4000 ML SOLN PO SCH (16:00)
[2019-10-18 16:09] LABS: HEMATOCRIT 23.3 % (42-54)
[2019-10-18] MEDS ORDERED: VANCOMYCIN 1GM+NS 250ML 250 ML IV ONE (17:15)
[2019-10-18] MEDS: PANTOPRAZOLE 40 MG/VIAL IVP SCH (20:08)
[2019-10-18 22:32] LABS: ABG BASE EXCESS -4.2 mmol/L (-2.0-3.0); ABG OXYGEN SATURATION 98.9 % (95.0-99.0); ABG PCO2 26 mmHg (35-48)
[2019-10-19] VITALS (88 sets, daily range): BP systolic 100–163; BP diastolic 48–94
[2019-10-19] MEDS: PROPOFOL 1000 MG/100 ML 100 ML IV PRN (00:26)
[2019-10-19 04:49] LABS: BASOPHILS % (AUTO) 0.4 % (0.0-5.0); EOSINOPHILS % (AUTO) 49.3 % (0.0-8.0); LYMPHOCYTES % (AUTO) 2.8 % (21.0-51.0); MEAN CORPUSCULAR HEMOGLOBIN 30.8 pg (27.0-33.0); MEAN CORPUSCULAR HGB CONC 35.4 g/dL (32.0-36.0); MEAN CORPUSCULAR VOLUME 87.1 fL (79-99); MONOCYTES % (AUTO) 10.2 % (3.0-13.0); NEUTROPHILS % (AUTO) 31.3 % (40.0-77.0); NUCLEATED RED BLOOD CELLS 3.6 % (0.0-0.19); PLATELET COUNT (AUTO) 36 K/uL (130-400); RED BLOOD CELL COUNT(AUTO) 2.24 MIL/uL (4.50-6.20); RED CELL DISTRIBUTION WIDTH 14.6 % (11.0-15.5); WHITE BLOOD COUNT (AUTO) 7.5 K/uL (4.8-10.8)
[2019-10-19 05:02] LABS: INR 1.18 (0.85-1.15); PARTIAL THROMBOPLASTIN TIME 39.8 SEC (26.3-35.5); PROTHROMBIN TIME 12.7 SEC (9.6-11.6)
[2019-10-19 05:03] LABS: HEMATOCRIT 19.5 % (42-54)
[2019-10-19 05:29] LABS: ALBUMIN 2.4 g/dL (3.5-5.0); BILIRUBIN,TOTAL 1.1 mg/dL (0.2-1.0); CREATININE 6.5 mg/dL (0.5-1.5); MAGNESIUM 2.3 mg/dL (1.80-2.40)
[2019-10-19] MEDS: LEVOTHYROXINE 50 MCG TABLET PO SCH (05:36)
[2019-10-19 05:40] LABS: POTASSIUM 2.9 mmol/L (3.5-5.1); TROPONIN I 6.21 ng/mL (0.00-0.06)
[2019-10-19] MEDS ORDERED: SODIUM CHLORIDE 0.9% 250 ML IV ONE (06:10)
[2019-10-19] MEDS: VASOPRESSIN 20 UNITS in SODIUM CHLORIDE 0.9% 100 ML IV SCH (06:39)
[2019-10-19] MEDS ORDERED: POTASSIUM CHLORIDE 20MEQ/100ML 100 ML IV ONE (06:54)
[2019-10-19] MEDS ORDERED: POTASSIUM CHLORIDE 20 MEQ/100 ML BAG IV STA (06:55)
[2019-10-19] MEDS: SEVELAMER HCL 800 MG TABLET PO SCH ×3 (07:25→16:17)
[2019-10-19] MEDS ORDERED: POTASSIUM CHLORIDE 20MEQ/100ML 100 ML IV SCH (07:45)
[2019-10-19] MEDS: MEROPENEM 500 MG VIAL IV SCH ×2 (08:16→20:07)
[2019-10-19] MEDS: PANTOPRAZOLE 40 MG/VIAL IVP SCH ×2 (08:16→20:09)
[2019-10-19 10:03] LABS: BASOPHILS % (AUTO) 0.6 % (0.0-5.0); EOSINOPHILS % (AUTO) 26.3 % (0.0-8.0); HEMATOCRIT 23.6 % (42-54); LYMPHOCYTES % (AUTO) 3.4 % (21.0-51.0); MEAN CORPUSCULAR HGB CONC 34.7 g/dL (32.0-36.0); MEAN CORPUSCULAR VOLUME 86.4 fL (79-99); MONOCYTES % (AUTO) 10.7 % (3.0-13.0); NEUTROPHILS % (AUTO) 51.3 % (40.0-77.0); NUCLEATED RED BLOOD CELLS 2.9 % (0.0-0.19); PLATELET COUNT (AUTO) 35 K/uL (130-400); RED BLOOD CELL COUNT(AUTO) 2.73 MIL/uL (4.50-6.20); RED CELL DISTRIBUTION WIDTH 14.5 % (11.0-15.5); WHITE BLOOD COUNT (AUTO) 8.3 K/uL (4.8-10.8)
[2019-10-19 10:31] LABS: CREATININE 6.8 mg/dL (0.5-1.5); POTASSIUM 3.2 mmol/L (3.5-5.1)
[2019-10-20] VITALS (38 sets, daily range): BP systolic 90–168; BP diastolic 53–97
[2019-10-20 05:34] LABS: ABG BASE EXCESS -5.3 mmol/L (-2.0-3.0); ABG OXYGEN SATURATION 96.7 % (95.0-99.0); ABG PCO2 39 mmHg (35-48)
[2019-10-20 06:16] LABS: BASOPHILS % (AUTO) 0.4 % (0.0-5.0); HEMATOCRIT 22.3 % (42-54); LYMPHOCYTES % (AUTO) 4.2 % (21.0-51.0); MEAN CORPUSCULAR HEMOGLOBIN 32.5 pg (27.0-33.0); MEAN CORPUSCULAR HGB CONC 35.9 g/dL (32.0-36.0); MEAN CORPUSCULAR VOLUME 90.7 fL (79-99); NEUTROPHILS % (AUTO) 79.8 % (40.0-77.0); NUCLEATED RED BLOOD CELLS 2.2 % (0.0-0.19); PLATELET COUNT (AUTO) 31 K/uL (130-400); RED BLOOD CELL COUNT(AUTO) 2.46 MIL/uL (4.50-6.20); RED CELL DISTRIBUTION WIDTH 15.3 % (11.0-15.5)
[2019-10-20 06:18] LABS: PARTIAL THROMBOPLASTIN TIME 36.1 SEC (26.3-35.5); PROTHROMBIN TIME 10.8 SEC (9.6-11.6)
[2019-10-20 06:27] LABS: ALBUMIN 2.5 g/dL (3.5-5.0); BILIRUBIN,TOTAL 1.2 mg/dL (0.2-1.0); CREATININE 6.8 mg/dL (0.5-1.5); MAGNESIUM 2.3 mg/dL (1.80-2.40); POTASSIUM 3.2 mmol/L (3.5-5.1); TOTAL PROTEIN, SERUM 5.4 g/dL (6.0-8.3)
[2019-10-20] MEDS: LEVOTHYROXINE 50 MCG TABLET PO SCH (06:30)
[2019-10-20 07:38] LABS: TROPONIN I 4.23 ng/mL (0.00-0.06)
[2019-10-20] MEDS: SEVELAMER HCL 800 MG TABLET PO SCH ×3 (08:00→17:00)
[2019-10-20] MEDS ORDERED: PHARMACY COMMUNICATION MISC SCH (08:30)
[2019-10-20] MEDS: PANTOPRAZOLE 40 MG/VIAL IVP SCH ×2 (08:37→20:23)
[2019-10-20] MEDS: MEROPENEM 500 MG VIAL IV SCH (08:37)
[2019-10-20] MEDS: LISINOPRIL 5 MG TABLET PO SCH (08:38)
[2019-10-20] MEDS: CARVEDILOL 3.125 MG TABLET PO SCH ×2 (08:39→21:00)
[2019-10-20] MEDS ORDERED: COMPOUND IV MISC 1 EACH IVSOLN MISC PRN (09:00)
[2019-10-20] MEDS ORDERED: VANCOMYCIN 1GM+NS 250ML 250 ML IV SCH (09:00)
--- NOTE | 2019-10-20 09:03 | NUR ---
RD FOLLOW UP/UPDATE - TUBE FEEDING Pt s/p Intubated, mechanical ventilation, OG tube in place per EMR. Tube Feeding Notification. Recommend Initiate Nepro @20mls/hr for first 5 hours Increase rate as tolerated by 5 ml every 5 hours to goal Goal rate: 45mls/hour to provide 1944kcal, 87gm protein, 785ml Free H2O Recommended Flushes: 160 ml every 4 hours. Recommendations faxed to 2nd Floor, Pod B (ext [phone]), RN notified. Nutrition Note: Pt s/p NE, Rhabdomyolysis with Renal failure, per EMR. Hemodialysis initiated. RUE 2+/BLE 2+ pitting edema. LBM 10/19/19. RD to continue to monitor. Addendum: 10/20/19 at [address] Amended: Links added.
[2019-10-20 09:44] LABS: % IRON SATURATION 48.7 % (30-44)
[2019-10-20] MEDS: IRON SUCROSE COMPLEX 300 MG in SODIUM CHLORIDE 0.9% 250 ML IVP SCH (09:47)
[2019-10-20 10:05] LABS: LACTATE DEHYDROGENASE 566 U/L (81-234)
[2019-10-20] MEDS: NAFCILLIN 1GM+NS 100ML 100 ML IV SCH ×2 (11:53→18:01)
--- NOTE | 2019-10-20 12:30 | NUR ---
DYSPHAGIA EVAL COMPLETED NO OVERT S/S OF ASPIRATION AT THIS TIME. RECOMMEND PUREED SOLIDS, THIN LIQUIDS, AND PILLS CRUSHED WITH APPLESAUCE TOLERATED. ELECTRIC STOVE INSTALLER REVIEWED RESULTS AND RECOMMENDATIONS WITH Pt AND NURSE SOFIA. ELECTRIC STOVE INSTALLER EDUCATED Pt ON RISKS AND CONSEQUENCES OF ASPIRATION. SPEECH THERAPY RECOMMENDED TO ADDRESS SWALLOWING GOALS. RECOMMENDATIONS: DYSPHAGIA THERAPY 3-5XWEEK TO INCREASE ORAL MOTOR STRENGTH AND PHARYNGEAL SWALLOW: LTG#1: Pt WILL TOLERATE LEAST RESTRICTIVE DIET TO MEET NUTRITION/HYDRATION WITH NO S/S OF ASPIRATION. LTG#2: SKILLED EDUCATION Pt/FAMILY/STAFF STG#1: Pt WILL PARTICIPATE IN LARYNGEAL ELEVATION/EXCURSION EXERCISES WITH 80% ACCURACY. STG#2: Pt WILL PARTICIPATE IN TONGUE BASE RETRACTION EXERCISES WITH 80% ACCURACY. STG#3: Pt WILL PARTICIPATE IN ORAL MOTOR EXERCISES WITH 80% ACCURACY. STG#4: Pt WILL TOLERATE THERAPEUTIC TRIALS OF MECHANICAL SOFT WITH NO OVERT S/S OF ASPIRATION. STG#5: Pt WILL BE ABLE TO PARTICIPATE IN MBSS AFTER 2-4 WEEKS OF THERAPEUTIC INTERVENTION. STG#6: SKILLED EDUCATION Pt/FAMILY/STAFF Addendum: 10/20/[address] RORY DONOHUE Amended: Links added.
--- NOTE | 2019-10-20 14:45 | NUR ---
DC PLAN VISITED WITH PATIENT. PATIENT RECEIVING DIALYSIS TREATMENT. GUARDED CONDITION. TEMP 96/4 LOW BP. SPOKE TO NURSE SAID PATIENT STILL GUARDED NOT SURE ON PLACEMENT ORDER. WILL ASK DR. VELIZ TO CLARIFY IF HE WANTS SNF OR LTAC. PATIENT IS A NEW START DIALYSIS STILL PENDING CHAIR. Addendum: 10/20/19 at 1448 by KARTHIK VIEYRA RN CM Amended: Links added.
[2019-10-21] VITALS (24 sets, daily range): BP systolic 111–145; BP diastolic 64–83
[2019-10-21] MEDS: NAFCILLIN 1GM+NS 100ML 100 ML IV SCH ×4 (00:39→18:09)
[2019-10-21 02:36] LABS: BASOPHILS % (AUTO) 0.3 % (0.0-5.0); EOSINOPHILS % (AUTO) 0.4 % (0.0-8.0); HEMATOCRIT 21.5 % (42-54); MEAN CORPUSCULAR HEMOGLOBIN 29.7 pg (27.0-33.0); MEAN CORPUSCULAR HGB CONC 34.4 g/dL (32.0-36.0); MEAN CORPUSCULAR VOLUME 86.3 fL (79-99); MONOCYTES % (AUTO) 12.8 % (3.0-13.0); NUCLEATED RED BLOOD CELLS 2.8 % (0.0-0.19); PLATELET COUNT (AUTO) 22 K/uL (130-400); RED BLOOD CELL COUNT(AUTO) 2.49 MIL/uL (4.50-6.20); WHITE BLOOD COUNT (AUTO) 6.7 K/uL (4.8-10.8)
[2019-10-21 02:48] LABS: ALBUMIN 2.2 g/dL (3.5-5.0); BILIRUBIN,TOTAL 1.9 mg/dL (0.2-1.0); MAGNESIUM 1.8 mg/dL (1.80-2.40)
[2019-10-21] MEDS ORDERED: POTASSIUM CHLORIDE 20 MEQ ERTAB PO SCH (03:15)
[2019-10-21] MEDS ORDERED: MAGNESIUM OXIDE 400 MG TABLET PO SCH (03:15)
--- NOTE | 2019-10-21 04:21 | NUR ---
0143 Patient had a 7 beat run of V Tach. Asymptomatic. VSS. Denies pain, sob. Awake, alert, watching TV. AM labs drawn early. Potassium level 3.0, Magnesium level 1.8. Hospitalist senior project controls specialist THERON Jacobs informed. Patient given 40meq kcl po x 1 dose, and magnesium 400mg po x 1 dose since patient is a dialysis patient. Remains asymptomatic. VSS
--- NOTE | 2019-10-21 05:53 | NUR ---
Dr Graves here. Full report given. Reported potassium, magnesium replacement after run of 7 beats V Tach. In to see patient. Patient denies pain, sob. VSS.
[2019-10-21] MEDS: LEVOTHYROXINE 50 MCG TABLET PO SCH (06:32)
[2019-10-21] MEDS: SEVELAMER HCL 800 MG TABLET PO SCH ×3 (08:35→16:45)
[2019-10-21] MEDS: IRON SUCROSE COMPLEX 300 MG in SODIUM CHLORIDE 0.9% 250 ML IVP SCH (08:35)
[2019-10-21] MEDS: LISINOPRIL 5 MG TABLET PO SCH (08:35)
[2019-10-21] MEDS: PANTOPRAZOLE 40 MG/VIAL IVP SCH ×2 (08:35→21:06)
[2019-10-21] MEDS: CARVEDILOL 3.125 MG TABLET PO SCH ×2 (08:36→21:00)
--- NOTE | 2019-10-21 09:10 | NUR ---
SWALLOWING TREATMENT COMPLETED S: Pt COOPERATIVE WITH THERAPEUTIC SWALLOWING GOALS. Pt CURRENTLY ON PUREED AND THIN LIQUIDS. Pt STABLE AND IN GOOD RESPIRATORY STATUS TO PROCEED WITH THERAPY. DAUGHTER PRESENT AT BEDSIDE. 0: Pt CURRENTLY TARGETING SWALLOWING GOALS, RESULTS ARE FOLLOWS: 1. Pt PARTICIPATED IN LARYNGEAL ELEVATION/EXCURSION EXERCISES WITH 100% ACCURACY. Pt CONTINUES WITH WET VOCAL QUALITY AND PARTIALLY CLEARING IT WITH STRONG THROAT CLEARS. ZONING ADMINISTRATOR ASSISTED WITH YANKAUER SUCTION. 2. Pt PARTICIPATED IN TONGUE BASE RETRACTION EXERCISES WITH 50% ACCURACY. 3. Pt PARTICIPATED IN ORAL MOTOR EXERCISES WITH 100% ACCURACY. 4. Pt PARTICIPATED IN THERAPEUTIC TRIALS OF ICE CHIPS WITH NO S/S OF ASPIRATION. 5. SKILLED EDUCATION Pt/FAMILY/STAFF: COMPLETED A: ZONING ADMINISTRATOR EDUCATED Pt AND DAUGHTER ON RISKS AND CONSEQUENCES OF ASPIRATION. Pt VERBALIZED UNDERSTANDING AND COOPERATION WITH SWALLOWING GOALS. P: RECOMMEND THE CONTINUATION OF PUREED SOLIDS AND THIN LIQUIDS TOLERATED. ZONING ADMINISTRATOR COORDINATED WITH NURSE SOFIA. ZONING ADMINISTRATOR WILL CONTINUE TO FOLLOW Pt DURING THE LENGTH OF STAY IN THE HOSPITAL TO CONTINUE ADDRESSING SWALLOWING GOALS. Addendum: 10/21/[address] RORY DONOHUE Amended: Links added.
--- NOTE | 2019-10-21 11:30 | NUR ---
[facility] CONSULT [facility] RECOMMENDATIONS SUBMITTED BASED ON PICTURES IN CHART OF STAGE II PRESSURE ULCER AND REPORT GIVEN FROM FLOOR NURSE FALGUNI. Addendum: 10/22/19 at 1304 by MERLINE SOMMER LVN LVN W Amended: Links added.
[2019-10-21 13:44] LABS: MAGNESIUM 1.8 mg/dL (1.80-2.40); POTASSIUM 3.1 mmol/L (3.5-5.1)
[2019-10-21] MEDS ORDERED: PHARMACY COMMUNICATION MISC SCH (15:30)
[2019-10-21] MEDS ORDERED: MAGNESIUM SULFATE 1 GM in SODIUM CHLORIDE 0.9% 50 ML IV SCH ×2 (16:00→17:00)
[2019-10-21] MEDS ORDERED: POTASSIUM CHLORIDE 20MEQ/100ML 100 ML IV SCH (16:30)
[2019-10-21] MEDS ORDERED: POTASSIUM CHLORIDE 10MEQ/100ML 10 MEQ/100 ML ML IV SCH (16:50)
--- NOTE | 2019-10-21 17:30 | NUR ---
UPDATE WOO BAPTISTE FOR DR ARAIZA, UPDATED ON PATIENT STATUS AND OVERNIGHT EVENT OF 7 BEAT RUN OF VTACH. NO FURTHER EPISODES NOTED AND ELECTROLYTES BEING REPLACED. NO FURTHER ORDERS AT THIS TIME.
[2019-10-21 22:31] LABS: MAGNESIUM 2.1 mg/dL (1.80-2.40); POTASSIUM 3.5 mmol/L (3.5-5.1)
[2019-10-22] VITALS (22 sets, daily range): BP systolic 119–161; BP diastolic 60–92
[2019-10-22] MEDS: NAFCILLIN 1GM+NS 100ML 100 ML IV SCH ×4 (00:40→18:35)
[2019-10-22 05:40] LABS: BASOPHILS % (AUTO) 0.3 % (0.0-5.0); EOSINOPHILS % (AUTO) 0.5 % (0.0-8.0); HEMATOCRIT 25.1 % (42-54); LYMPHOCYTES % (AUTO) 7.9 % (21.0-51.0); MEAN CORPUSCULAR HEMOGLOBIN 30.3 pg (27.0-33.0); MEAN CORPUSCULAR HGB CONC 34.7 g/dL (32.0-36.0); MEAN CORPUSCULAR VOLUME 87.5 fL (79-99); MONOCYTES % (AUTO) 12.9 % (3.0-13.0); NEUTROPHILS % (AUTO) 75.3 % (40.0-77.0); PLATELET COUNT (AUTO) 18 K/uL (130-400); RED BLOOD CELL COUNT(AUTO) 2.87 MIL/uL (4.50-6.20); RED CELL DISTRIBUTION WIDTH 15.3 % (11.0-15.5); WHITE BLOOD COUNT (AUTO) 5.7 K/uL (4.8-10.8)
[2019-10-22] MEDS: LEVOTHYROXINE 50 MCG TABLET PO SCH (05:43)
[2019-10-22 05:58] LABS: CREATININE 5.3 mg/dL (0.5-1.5); MAGNESIUM 2.1 mg/dL (1.80-2.40); POTASSIUM 3.4 mmol/L (3.5-5.1)
[2019-10-22] MEDS: PANTOPRAZOLE 40 MG/VIAL IVP SCH ×2 (08:32→20:44)
[2019-10-22] MEDS: SEVELAMER HCL 800 MG TABLET PO SCH ×3 (08:32→16:31)
[2019-10-22] MEDS: LISINOPRIL 10 MG TABLET PO SCH (08:34)
[2019-10-22] MEDS: IRON SUCROSE COMPLEX 300 MG in SODIUM CHLORIDE 0.9% 250 ML IVP SCH (09:28)
[2019-10-22 09:32] LABS: INR 0.93 (0.85-1.15); PROTHROMBIN TIME 10.1 SEC (9.6-11.6)
--- NOTE | 2019-10-22 09:50 | NUR ---
Dr AMATOM IN TO SEE PT. RECIEVED ORDER FOR PLATELET TRANSFUSION. AND BONE MARROW BIOPSY ORDERED FOR IR
[2019-10-22] MEDS ORDERED: SODIUM CHLORIDE 0.9% 500ML 500 ML IV ONE (10:26)
--- NOTE | 2019-10-22 11:05 | NUR ---
PLATELETS BEING ADMINISTERED, TELEPHONE CONSENT FOR BONE MARROW BIOPSY FROM TO TO PTS ALTERATED COGNITIVE LEVEL. PT EXPLAINED PROCEDURE ALSO.
--- NOTE | 2019-10-22 11:07 | NUR ---
PHYSICAL THERAPY IN TO SEE AND WORK WITH PATIENT
--- NOTE | 2019-10-22 11:36 | NUR ---
TAKEN TO IR FOR BONE MARROW BIOPSY
[2019-10-22] MEDS ORDERED: MIDAZOLAM HCL 1 MG/ML 2ML VIAL ONE (11:42)
[2019-10-22] MEDS ORDERED: FENTANYL CITRATE PF 50 MCG/1 ML 2ML VIAL ONE (11:42)
--- NOTE | 2019-10-22 12:16 | NUR ---
DC PLAN SPOKE TO DR. TANG WENT OVER CASE. SAID LTAC WOULD BE APPROPRIATE DISPO. SPOKE TO PATIENT SAID DID NOT CARE. PER NURSE PATIENT CONFUSED SOMETIMES. SPOKE TO SPOUSE EXPLAINED MD PLAN FOR DISPO. SAID OKAY. SIGNED ANNA. INFO FAXED AND EMAILED TO [facility]. ZOFIA AWARE. CM WILL CONTINUE TO FOLLOW. Addendum: 10/22/19 at 1218 by KARTHIK VIEYRA RN CM Amended: Links added.
--- NOTE | 2019-10-22 12:38 | NUR ---
RE: RT ILIAC BONE MARROW BIOPSY PROCEDURE PERFORMED BY DR Yamila [facility]. PUNCTURE SITE RT BUTTOCK. RT ILIAC BONE MARROW ASPIRATED WITH CORE AND CLOT COLLECTED. SPECIMEN SENT TO LAB. END OF PROCEDURE AT 1225. ASPIRATION NEEDLE REMOVED AND DRESSING APPLIED. NO BLEEDING NOTED. REPORT GIVEN TO Rubio LEON RN AND PATIENT TRANSPORTED TO [facility] VIA BED AT 1240.
--- NOTE | 2019-10-22 14:58 | NUR ---
CM Note: [facility] pending approval CM spoke to Latha ellsworth/Florian, received order and clinicals. Pt pending approval. MOT semi-filled will complete once pt have approval. EMS filled out, pending to be faxed w/current date. Pt pending approval at this time. Primary nurse aware. CM to cont to follow up.
[2019-10-22] MEDS ORDERED: 0.9% SODIUM CHLORIDE 1000 ML IV BAG IV PRN (15:00)
[2019-10-22] MEDS ORDERED: HEPARIN SODIUM 5000UNIT/ML 1ML VIAL IJ PRN (15:00)
[2019-10-22] MEDS ORDERED: SODIUM CHLORIDE 0.9% 1000ML 1,000 ML IV PRN (15:00)
[2019-10-22] MEDS ORDERED: ACETAMINOPHEN 325 MG TAB PO PRN (15:00)
--- NOTE | 2019-10-22 16:04 | NUR ---
DIALYSIS PATIENT RECEIVED DIALYSIS TODAY FROM 1251 HOURS TO 1551 HOURS, REMOVED WAS 2 LITERS. PATIENT TOLERATED PROCEDURE WITHOUT INCIDENT.
[2019-10-23] MEDS: NAFCILLIN 1GM+NS 100ML 100 ML IV SCH ×3 (00:05→12:42)
[2019-10-23 03:58] VITALS: BP 157/87
[2019-10-23] MEDS: LEVOTHYROXINE 50 MCG TABLET PO SCH (05:35)
[2019-10-23 05:53] LABS: BASOPHILS % (AUTO) 0.2 % (0.0-5.0); EOSINOPHILS % (AUTO) 0.4 % (0.0-8.0); HEMATOCRIT 25.5 % (42-54); LYMPHOCYTES % (AUTO) 10.4 % (21.0-51.0); MEAN CORPUSCULAR HEMOGLOBIN 30.4 pg (27.0-33.0); MEAN CORPUSCULAR HGB CONC 34.1 g/dL (32.0-36.0); MEAN CORPUSCULAR VOLUME 89.2 fL (79-99); MONOCYTES % (AUTO) 12.8 % (3.0-13.0); NEUTROPHILS % (AUTO) 73.8 % (40.0-77.0); NUCLEATED RED BLOOD CELLS 2.6 % (0.0-0.19); PLATELET COUNT (AUTO) 50 K/uL (130-400); RED BLOOD CELL COUNT(AUTO) 2.86 MIL/uL (4.50-6.20); WHITE BLOOD COUNT (AUTO) 4.6 K/uL (4.8-10.8)
[2019-10-23 06:18] LABS: CREATININE 4.5 mg/dL (0.5-1.5); POTASSIUM 3.3 mmol/L (3.5-5.1)
[2019-10-23] MEDS: SEVELAMER HCL 800 MG TABLET PO SCH ×2 (08:00→12:00)
[2019-10-23 09:12] VITALS: BP 151/86
[2019-10-23] MEDS ORDERED: SODIUM CHLORIDE 0.9% IJ SCH (09:55)
[2019-10-23] MEDS ORDERED: DESMOPRESSIN ACETATE IJ SCH (09:55)
--- NOTE | 2019-10-23 10:11 | NUR ---
[employer] CALLED [phone] SAID THEY ARE TRYING TO GIVE AUTH FOR LTAC BUT DID NOT HAVE CONTACT INFO GAVE THEM [facility] CELL NUMBER REP FOR LTAC. ASKED IF NUMBER AVAILABLE IN CASE THEY WANTED TO CALL SAID NO THEY ONLY DO FAX. LET ZOFIA WITH LTAC KNOW INSURANCE GOING TO REACH OUT. LET TORY THAT NOW HAS CASE KNOW WELL. Addendum: 10/23/19 at 1014 by KARTHIK VIEYRA RN CM Amended: Links added.
[2019-10-23] MEDS: PANTOPRAZOLE 40 MG/VIAL IVP SCH (10:17)
[2019-10-23] MEDS: IRON SUCROSE COMPLEX 300 MG in SODIUM CHLORIDE 0.9% 250 ML IVP SCH (10:17)
[2019-10-23 12:14] VITALS: BP 162/75
[2019-10-23] MEDS: LISINOPRIL 10 MG TABLET PO SCH (12:42)
--- NOTE | 2019-10-23 12:50 | NUR ---
DYSPHAGIA RE-EVAL COMPLETED. NO OVERT S/S OF ASPIRATION AT THIS TIME. (MILD RESIDUE IN [place] CLEARED WITH INNATE THROAT CLEARS). RECOMMEND MECHANICAL SOFT/GROUND SOLIDS, THIN LIQUIDS, AND PILLS WHOLE WITH LIQUIDS TOLERATED. COMPENSATORY STRATEGIES: SMALL BITES/SIPS, SLOW P.O. INTAKE, SIT UPRIGHT DURING AND 30 MINUTES AFTER MEAL, AND EXTRA DRY SWALLOWS. RECOMMENDATIONS: DYSPHAGIA THERAPY 3-5XWEEK TO INCREASE ORAL MOTOR STRENGTH AND PHARYNGEAL SWALLOW: LTG#1: Pt WILL TOLERATE LEAST RESTRICTIVE DIET TO MEET NUTRITION/HYDRATION WITH NO S/S OF ASPIRATION. LTG#2: SKILLED EDUCATION Pt/FAMILY/STAFF STG#1: Pt WILL PARTICIPATE IN LARYNGEAL ELEVATION/EXCURSION EXERCISES WITH 80% ACCURACY. STG#2: Pt WILL PARTICIPATE IN TONGUE BASE RETRACTION EXERCISES WITH 80% ACCURACY. STG#3: Pt WILL PARTICIPATE IN ORAL MOTOR EXERCISES WITH 80% ACCURACY. STG#4: Pt WILL TOLERATE THERAPEUTIC TRIALS OF MECHANICAL SOFT CHOPPED WITH NO OVERT S/S OF ASPIRATION. STG#5: Pt WILL BE ABLE TO PARTICIPATE IN MBSS AFTER 2-4 WEEKS OF THERAPEUTIC INTERVENTION. STG#6: SKILLED EDUCATION Pt/FAMILY/STAFF. RN INTERNSHIP EDUCATED Pt ON RISKS AND CONSEQUENCES OF ASPIRATION. ALL QUESTIONS ANSWERED AT THIS TIME. RN INTERNSHIP COORDINATED WITH NURSE CHRIS. Addendum: 10/23/[address] RORY DONOHUE Amended: Links added.
--- NOTE | 2019-10-23 15:30 | NUR ---
[facility] REPORT REPORT CALLED TO GLADYS HESTER RN AT [facility]. PATIENT TO BE TRANSFERED WITH RIGHT IJ CENTRAL LINE. CALLED LIZZY BROWN TO INFORM OF PATIENT TRANSFER TO [facility].
--- NOTE | 2019-10-23 15:40 | NUR ---
[facility] CALLED EMS FOR TRANSPORT TO [facility].
[2019-10-23 16:14] VITALS: BP 154/81
--- NOTE | 2019-10-23 16:15 | NUR ---
RD FOLLOW UP Pt diet advanced to Renal Dialysis, Mechanical Soft, Soft/[place]. Pt tolerating diet order with no report of GI distress. Pt with decreased appetite, ate 50% of lunch. Pt is receiving hemodialysis and pending Bone Marrow biopsy results. Recommend add Nepro BID Recommend continue current diet order. RD to continue to monitor. Please notify as additional nutrition concerns arise. Thank you. Addendum: 10/23/19 at [address] Amended: Links added.
--- NOTE | 2019-10-23 17:03 | NUR ---
[facility] TRANSFER PATIENT TRANSFERRED TO [facility] VIA EMS.
== END 2019-10-23 17:00 | DRG 673 ==
LOC: EDH 12:13 → EDHIP 15:32 → 4CH 22:21 → 2BH 10-17 07:37 → 4DH 10-22 12:20
PROVIDERS: ADMIT Family Medicine; ATTEND Family Medicine
PROC: 5A1D70Z Performance of Urinary Filtration, Intermittent, Less than 6 Hours Per Day (ICD-10-PCS; principal; 2019-10-13)
PROC: 0JH63XZ Insertion of Tunneled Vascular Access Device into Chest Subcutaneous Tissue and Fascia, Percutaneous Approach (ICD-10-PCS; 2019-10-13)
PROC: 02H633Z Insertion of Infusion Device into Right Atrium, Percutaneous Approach (ICD-10-PCS; 2019-10-13)
PROC: B548ZZA Ultrasonography of Superior Vena Cava, Guidance (ICD-10-PCS; 2019-10-13)
PROC: 5A1D70Z Performance of Urinary Filtration, Intermittent, Less than 6 Hours Per Day (ICD-10-PCS; 2019-10-14)
PROC: 5A1D70Z Performance of Urinary Filtration, Intermittent, Less than 6 Hours Per Day (ICD-10-PCS; 2019-10-15)
PROC: 5A1D70Z Performance of Urinary Filtration, Intermittent, Less than 6 Hours Per Day (ICD-10-PCS; 2019-10-17)
PROC: 5A1945Z Respiratory Ventilation, 24-96 Consecutive Hours (ICD-10-PCS; 2019-10-17)
PROC: 0BH17EZ Insertion of Endotracheal Airway into Trachea, Via Natural or Artificial Opening (ICD-10-PCS; 2019-10-17)
PROC: 5A09357 Assistance with Respiratory Ventilation, Less than 24 Consecutive Hours, Continuous Positive Airway Pressure (ICD-10-PCS; 2019-10-17)
PROC: 0W3P8ZZ Control Bleeding in Gastrointestinal Tract, Via Natural or Artificial Opening Endoscopic (ICD-10-PCS; 2019-10-18)
PROC: 0DBN8ZX Excision of Sigmoid Colon, Via Natural or Artificial Opening Endoscopic, Diagnostic (ICD-10-PCS; 2019-10-19)
PROC: 5A1D70Z Performance of Urinary Filtration, Intermittent, Less than 6 Hours Per Day (ICD-10-PCS; 2019-10-20)
PROC: 30233K1 Transfusion of Nonautologous Frozen Plasma into Peripheral Vein, Percutaneous Approach (ICD-10-PCS; 2019-10-20)
PROC: 30233N1 Transfusion of Nonautologous Red Blood Cells into Peripheral Vein, Percutaneous Approach (ICD-10-PCS; 2019-10-20)
PROC: 30233R1 Transfusion of Nonautologous Platelets into Peripheral Vein, Percutaneous Approach (ICD-10-PCS; 2019-10-20)
PROC: 5A1D70Z Performance of Urinary Filtration, Intermittent, Less than 6 Hours Per Day (ICD-10-PCS; 2019-10-22)
PROC: 07DR0ZX Extraction of Iliac Bone Marrow, Open Approach, Diagnostic (ICD-10-PCS; 2019-10-22)
DX: N17.9 Acute kidney failure, unspecified (principal); K25.0 Acute gastric ulcer with hemorrhage; K26.0 Acute duodenal ulcer with hemorrhage; R57.0 Cardiogenic shock; I21.A1 Myocardial infarction type 2; R65.21 Severe sepsis with septic shock; I50.23 Acute on chronic systolic (congestive) heart failure; K72.00 Acute and subacute hepatic failure without coma; J96.01 Acute respiratory failure with hypoxia; A41.9 Sepsis, unspecified organism; K57.31 Diverticulosis of large intestine without perforation or abscess with bleeding; R57.1 Hypovolemic shock; I13.2 Hypertensive heart and chronic kidney disease with heart failure and with stage 5 chronic kidney disease, or end stage renal disease; M62.82 Rhabdomyolysis; E87.2 Acidosis; E87.1 Hypo-osmolality and hyponatremia; K56.7 Ileus, unspecified; D62 Acute posthemorrhagic anemia; I47.2 Ventricular tachycardia; D68.9 Coagulation defect, unspecified; K62.6 Ulcer of anus and rectum; N17.0 Acute kidney failure with tubular necrosis; N18.6 End stage renal disease; K52.9 Noninfective gastroenteritis and colitis, unspecified; E78.01 Familial hypercholesterolemia; E11.649 Type 2 diabetes mellitus with hypoglycemia without coma; L89.152 Pressure ulcer of sacral region, stage 2; E87.6 Hypokalemia; D69.6 Thrombocytopenia, unspecified; K26.9 Duodenal ulcer, unspecified as acute or chronic, without hemorrhage or perforation; K21.0 Gastro-esophageal reflux disease with esophagitis; K64.0 First degree hemorrhoids; K57.30 Diverticulosis of large intestine without perforation or abscess without bleeding; B96.89 Other specified bacterial agents as the cause of diseases classified elsewhere; D63.8 Anemia in other chronic diseases classified elsewhere; E03.9 Hypothyroidism, unspecified; E11.22 Type 2 diabetes mellitus with diabetic chronic kidney disease; E66.9 Obesity, unspecified; Z68.30 Body mass index [BMI] 30.0-30.9, adult; E78.5 Hyperlipidemia, unspecified; F17.200 Nicotine dependence, unspecified, uncomplicated; F28 Other psychotic disorder not due to a substance or known physiological condition; I25.10 Atherosclerotic heart disease of native coronary artery without angina pectoris; I25.5 Ischemic cardiomyopathy; I34.0 Nonrheumatic mitral (valve) insufficiency; I50.82 Biventricular heart failure; K25.9 Gastric ulcer, unspecified as acute or chronic, without hemorrhage or perforation; K29.70 Gastritis, unspecified, without bleeding; K55.20 Angiodysplasia of colon without hemorrhage; K56.41 Fecal impaction; K64.8 Other hemorrhoids; K80.20 Calculus of gallbladder without cholecystitis without obstruction; Z99.2 Dependence on renal dialysis; I25.2 Old myocardial infarction; Z74.01 Bed confinement status; Z95.1 Presence of aortocoronary bypass graft; Z87.11 Personal history of peptic ulcer disease; Z83.3 Family history of diabetes mellitus; R58 Hemorrhage, not elsewhere classified
CPT/HCPCS: 31500; 36415; 36430; 36558; 36600; 38222; 43255; 45380; 71045; 74018; 74176; 76770; 77001; 77012; 80048; 80053; 80061; 80202; 81001; 82040; 82140; 82270; 82435; 82533; 82550; 82565; 82570; 82607; 82728; 82803; 82947; 82948; 82977; 83036; 83540; 83550; 83605; 83615; 83630; 83735; 83874; 83880; 84100; 84132; 84145; 84165; 84295; 84300; 84443; 84484; 84520; 85014; 85018; 85025; 85027; 85384; 85610; 85730; 86022; 86140; 86160; 86255; 86334; 86701; 86704; 86706; 86850; 86900; 86901; 86922; 86927; 87040; 87046; 87077; 87177; 87186; 87340; 87390; 87520; 90935; 92526; 92610; 93005; 93306; 93356; 93971; 94002; 94003; 94640; 94660; 94664; 94760; 97039; 99152; 99153; 99156; A4344; A4606; A6250; C1750; C9113; G0378; J0171; J0885; J1200; J1364; J1644; J1720; J1756; J2185; J2250; J2354; J2405; J2597; J2704; J3010; J3370; J3475; J3480; J3490; J7030; J7040; J7050; J7070; P9012; P9016; P9017; P9034; Q0163